=== PATIENT | female | born 1965 | race Caucasian/White ===

== ENCOUNTER 2022-09-08 17:20 | Emergency (ER) | payer OTHER ==
--- NOTE | 2022-09-08 18:05 | RAD REPORT ---
EXAM DESCRIPTION: - Finger-Thumb Left - 09/08/2022 5:52 pm CLINICAL HISTORY: laceration COMPARISON: No comparisons FINDINGS: Partial amputation of the fifth finger involving soft tissue but possibly with expose bone . No fractures seen. No radiopaque foreign body. Mild diffuse interphalangeal joint space narrowing. IMPRESSION: Partial amputation of the fifth finger at the tip appears to involve only the soft tissu es however bone may be exposed.
[2022-09-08] MEDS ORDERED: LIDOCAINE 1% MPF 30 ML VIAL ONE (18:40)
[2022-09-08] MEDS ORDERED: BUPIVACAINE 0.5% PF 10 ML VIAL ONE (18:40)
[2022-09-08] MEDS ORDERED: TETANUS & DIPHTHERIA TOX,ADULT 0.5 ML VIAL ONE (18:40)
[2022-09-08] MEDS ORDERED: HYDROCODONE/APAP 5/325 MG TAB ONE (18:52)
[2022-09-08] MEDS ORDERED: IBUPROFEN 200 MG TAB PO ONE (18:52)
--- NOTE | 2022-09-08 20:21 | ER ---
Nurse's Notes [facility] Name: Ashley Rice Age: 57 yrs Sex: Female : 1965 Arrival Date: 09/08/2022 Time: 17:21 Bed 12 Private MD: Diagnosis: Laceration without foreign body of finger with damage to nail-left fifth finger Presentation: 09/08 17:25 Chief complaint: Amputated tip of left 5th finger while cutting onions. Bleeding hb controlled. Coronavirus screen: At this time, the client does not indicate any symptoms associated with coronavirus-19. Ebola Screen: No symptoms or risks identified at this time. Risk Assessment: Do you want to hurt yourself or someone else? Patient reports no desire to harm self or others. Onset of symptoms was September 08, 2022. 17:25 Method Of Arrival: Ambulatory hb 17:25 Acuity: SANG 4 hb Historical: - Allergies: 17:26 PENICILLINS; hb 17:26 Sulfa (Sulfonamide Antibiotics); hb - Immunization history:: Adult Immunizations up to date. - Social history:: Smoking status: Patient denies any tobacco usage or history of. Screenin:29 Abuse screen: Denies threats or abuse. Denies injuries from another. Nutritional eh3 screening: No deficits noted. Tuberculosis screening: No symptoms or risk factors identified. Fall Risk None identified. Assessment: 17:29 General: Appears in no apparent distress. uncomfortable, Behavior is calm, cooperative, eh3 appropriate for age. Pain: Denies pain. Neuro: Level of Consciousness is awake, alert, obeys commands, Oriented to person, place, time, situation. Cardiovascular: Capillary refill < 3 seconds Patient's skin is warm and dry. Respiratory: Airway is patent Respiratory effort is even, unlabored, Respiratory pattern is regular, symmetrical. GI: No signs and/or symptoms were reported involving the gastrointestinal system. : No signs and/or symptoms were reported regarding the genitourinary system. EENT: No deficits noted. Derm: No deficits noted. Musculoskeletal: Circulation, motion, and sensation intact. Range of motion: intact in all extremities. Injury Description: Amputation sustained to tip of left little finger was sustained less than 30 minutes ago. 18:30 Reassessment: Patient and/or family updated on plan of care and expected duration. Pain iw level reassessed. Patient is alert, oriented x 3, equal unlabored respirations, skin warm/dry/pink. 18:50 Neuro: Cruz Agitation-Sedation Scale (RASS): 0 - Alert and Calm. iw 19:30 Reassessment: Patient and/or family updated on plan of care and expected duration. Pain eh3 level reassessed. Patient is alert, oriented x 3, equal unlabored respirations, skin warm/dry/pink. 19:49 Neuro: Cruz Agitation-Sedation Scale (RASS): 0 - Alert and Calm. eh3 Vital Signs: 17:25 BP 130 / 90; Pulse 88; Resp 16; Temp 98.6; Pulse Ox 100% on R/A; Weight 54.43 kg; hb Height 5 ft. 6 in. (167.64 cm); Pain 5/10; 18:30 BP 111 / 89; Pulse 94; Resp 16; Pulse Ox 100% on R/A; iw 19:30 BP 115 / 82; Pulse 91; Resp 16; Pulse Ox 100% on R/A; eh3 17:25 Body Mass Index 19.37 (54.43 kg, 167.64 cm) hb ED Course: 17:21 Patient arrived in ED. am2 17:21 Dat Duron PA is PHCP. cp 17:21 Isidro Ryan MD is Attending Physician. cp 17:26 Triage completed. hb 17:26 Arm band placed on. hb 17:29 Shavon Jeffries, RN is Primary Nurse. eh3 17:29 Patient has correct armband on for positive identification. Bed in low position. Call 3 light in reach. Adult w/ patient. Client placed on continuous cardiac and pulse oximetry monitoring. NIBP monitoring applied. Door closed. Noise minimized. 17:53 XRAY Finger-Thumb Left In Process Unspecified. EDMS 19:30 Dressings: Kerlix X 1; left little finger non-adherent dressing x 1 left little finger. eh3 20:19 Nico Garcia MD is Referral Physician. cp Administered Medications: 18:49 Drug: Tetanus Toxoid,Adsorbed 0.5 ml {Doctor Of Nursing Practice: [employer]. Exp: 04/05/2024. Lot [id number] #: [id number]. } Route: IM; Site: left deltoid; 19:30 Follow up: Response: (VIS) Vaccine information sheet provided today. Questions and/or as6 concerns addressed. VIS edition date: Jun 22, 2021.; No adverse reaction 18:50 Drug: Ibuprofen 600 mg Route: PO; iw 19:30 Follow up: Response: Pain is decreased as6 18:50 Drug: HYDROcodone-acetaminophen 5 mg-325 mg 1 tabs Route: PO; iw 19:30 Follow up: Response: Pain is decreased as6 19:00 Drug: Lidocaine (1 %) 10 ml {Note: administered by PA. Kristina} Volume: 20 ml; as6 Route: Infiltration; 19:30 Follow up: Response: Pain is decreased as6 19:00 Drug: Marcaine (bupivacaine) (0.5 %) 10 ml {Note: administered by PA. Kristina} as6 Volume: 10 ml; Route: Infiltration; 19:30 Follow up: Response: Pain is decreased as6 Outcome: 20:20 Discharge ordered by MD. root 20:53 Patient left the ED. tw5 Signatures: Dispatcher [employer] EDKylee Sharpe RN RN iw Page, Corey, PA PA cp Baxter, Heather, RN Zulay Beltran Tiffany tw5 Flakito Simeon RN RN as6 Shavon Jeffries RN RN eh3
--- NOTE | 2022-09-08 20:21 | EDPHYS ---
Physician Documentation [facility] Name: Ashley Rice Age: 57 yrs Sex: Female : 1965 Arrival Date: 09/08/2022 Time: 17:21 Bed 12 Private MD: ED Physician Isidro Ryan HPI: 09/08 17:45 This 57 yrs old Female presents to ER via Ambulatory with complaints of Finger Injury, cp Laceration. 17:45 The patient or guardian reports a laceration, clean. The complaints affect the tip of cp distal phalanx left fifth finger. Context: The problem was sustained at home, resulted from using knife while cooking. Onset: The symptoms/episode began/occurred just prior to arrival. Associated signs and symptoms: The patient has no apparent associated signs or symptoms. Historical: - Allergies: 17:26 PENICILLINS; hb 17:26 Sulfa (Sulfonamide Antibiotics); hb - Immunization history:: Adult Immunizations up to date. - Social history:: Smoking status: Patient denies any tobacco usage or history of. ROS: 17:50 MS/extremity: Positive for laceration, of the tip of distal phalanx left fifth finger. cp 17:50 Constitutional: Negative for body aches, chills, fever, poor PO intake. cp 17:50 All other systems are negative. Exam: 17:55 Constitutional: The patient appears in no acute distress, alert, awake, comfortable, cp non-toxic, well developed, well nourished. 17:55 Head/Face: Normocephalic, atraumatic. cp 17:55 Musculoskeletal/extremity: Extremities: grossly normal except: noted in the distal tip cp left fifth finger: pain, tenderness, complete amputation of soft tissue with mild bleeding and exposure of subcutaneous tissue, ROM: full active range of motion, in the left little finger, Perfusion: the extremity is normally perfused throughout, the left little finger Sensation intact. Tendon exam: specific tendon testing normal through active and passive range of motion Vital Signs: 17:25 BP 130 / 90; Pulse 88; Resp 16; Temp 98.6; Pulse Ox 100% on R/A; Weight 54.43 kg; hb Height 5 ft. 6 in. (167.64 cm); Pain 5/10; 18:30 BP 111 / 89; Pulse 94; Resp 16; Pulse Ox 100% on R/A; iw 19:30 BP 115 / 82; Pulse 91; Resp 16; Pulse Ox 100% on R/A; eh3 17:25 Body Mass Index 19.37 (54.43 kg, 167.64 cm) hb Laceration: 20:25 Wound Repair of 2cm ( 0.8in ) subcutaneous laceration to left little finger. complete cp amputation of soft tissue. Distal neuro/vascular/tendon intact. Anesthesia: Digital block administered with 6 mls of Lido/Marcaine. Wound prep: Moderate cleansing by me, Wound irrigation by me. Skin closed with 4 4-0 Prolene using interrupted sutures and sterile technique. Dressed with Bacitracin, 4x4's. Patient tolerated well. MDM: 17:27 Patient medically screened. cp 20:20 Data reviewed: vital signs, nurses notes, radiologic studies, plain films. cp 20:20 Differential diagnosis: open fracture, amputation, simple laceration. Test cp interpretation: by ED physician or midlevel provider: plain radiologic studies. Counseling: I had a detailed discussion with the patient and/or guardian regarding: the historical points, exam findings, and any diagnostic results supporting the discharge/admit diagnosis, radiology results, the need for outpatient follow up, a hand specialist, to return to the emergency department if symptoms worsen or persist or if there are any questions or concerns that arise at home. Response to treatment: the patient's symptoms have markedly improved after treatment, and as a result, I will discharge patient. 09/08 17:35 Order name: XRAY Finger-Thumb Left; Complete Time: 18:13 cp 09/08 18:27 Order name: Dressing - Wound; Complete Time: 19:48 cp 09/08 18:27 Order name: Gloves, Sterile; Complete Time: 18:49 cp 09/08 18:27 Order name: Setup Suture Tray; Complete Time: 18:48 cp Administered Medications: 18:49 Drug: Tetanus Toxoid,Adsorbed 0.5 ml {Divorce Attorney: [employer]. Exp: 04/05/2024. Lot eh3 #: [id number]. } Route: IM; Site: left deltoid; 19:30 Follow up: Response: (VIS) Vaccine information sheet provided today. Questions and/or as6 concerns addressed. VIS edition date: Jun 22, 2021.; No adverse reaction 18:50 Drug: Ibuprofen 600 mg Route: PO; iw 19:30 Follow up: Response: Pain is decreased as6 18:50 Drug: HYDROcodone-acetaminophen 5 mg-325 mg 1 tabs Route: PO; iw 19:30 Follow up: Response: Pain is decreased as6 19:00 Drug: Lidocaine (1 %) 10 ml {Note: administered by PA. Kristina} Volume: 20 ml; as6 Route: Infiltration; 19:30 Follow up: Response: Pain is decreased as6 19:00 Drug: Marcaine (bupivacaine) (0.5 %) 10 ml {Note: administered by PA. Kristina} as6 Volume: 10 ml; Route: Infiltration; 19:30 Follow up: Response: Pain is decreased as6 Disposition Summary: 09/08/22 20:20 Discharge Ordered Location: Home cp Problem: new cp Symptoms: have improved cp Condition: Stable cp Diagnosis - Laceration without foreign body of finger with damage to nail - left fifth finger cp Followup: cp - With: Nico Garcia MD - When: 2 - 3 days - Reason: Wound Recheck Discharge Instructions: - Discharge Summary Sheet cp - Laceration Care, Adult cp Forms: - Medication Reconciliation Form cp - Thank You Letter cp - Antibiotic Education cp - Prescription Opioid Use cp Prescriptions: - Cephalexin 500 mg Oral Capsule - take 1 capsule by ORAL route every 6 hours for 10 days; 40 capsule; Refills: 0, cp Product Selection Permitted - Ibuprofen 600 mg Oral Tablet - take 1 tablet by ORAL route every 8 hours As needed take with food; 30 tablet; cp Refills: 0, Product Selection Permitted Addendum: 09/12/2022 00:11 Co-signature as Attending Physician, Isidro Ryan MD. r n Signatures: Dispatcher [employer] Kylee Guaman RN RN iw Nieto, Roman, MD MD rn Page, Corey, PA PA cp Delmy Tamayo RN RN hb Flakito Simeon RN RN as6 Shavon Jeffries RN RN eh3
[2022-09-08 21:02] VITALS: TEMP 98.6; O2SAT 100
[2022-09-08 21:04] VITALS: BP 115/82
== END 2022-09-08 20:53 | disposition home or self-care (01) ==
LOC: ER 17:20
PROC: 0JQK0ZZ Repair Left Hand Subcutaneous Tissue and Fascia, Open Approach (ICD-10-PCS; principal; 2022-09-08)
DX: S61.317A Laceration without foreign body of left little finger with damage to nail, initial encounter (principal); Z23 Encounter for immunization; Z88.0 Allergy status to penicillin; Z88.2 Allergy status to sulfonamides
CPT/HCPCS: 90471; 90714; 99283